=== PATIENT | male | born 1945 | race Caucasian/White ===

== ENCOUNTER 2022-05-02 09:05 | Outpatient (RCR) | payer MEDICARE, BC, SELFPAY ==
[2022-05-02 09:56] LABS: Basophils Absolute Auto 0.03 K/uL (0.00-0.30); Basophils Percent Auto 0.4 % (0.0-3.0); Eosinophils Absolute Auto 0.12 K/uL (0.00-0.50); Eosinophils Percent Auto 1.6 % (0.0-7.0); Hemoglobin* 12.1 gm/dL (13.5-17.5); Lymphocytes Absolute Auto 1.59 K/uL (0.90-2.90); Lymphocytes Percent Auto 21.7 % (20-44); Mean Corpuscular HGB Conc 34 gm/dL (32-36); Mean Corpuscular Hemoglobin 34 pg (26-34); Mean Corpuscular Volume 101 fL (80-100); Monocytes Percent Auto 10.1 % (0.0-11.0); Neutrophils Absolute Auto 4.85 K/uL (1.7-7.0); Neutrophils Percent Auto 66.2 % (42.0-72.0); Platelet Count* 205 K/uL (140-440); Red Blood Count 3.57 m/uL (4.30-5.90); White Blood Count* 7.33 K/uL (4.50-11.00)
[2022-05-02 09:57] LABS: Slide Review Reflex No
[2022-05-02 14:34] LABS: Albumin* 3.9 g/dL (3.3-5.0); Chloride* 102 mmol/L (96-114); Sodium* 135 mmol/L (135-149)
[2022-05-02 14:35] LABS: Potassium* 4.1 mmol/L (3.6-5.1)
[2022-05-02 14:38] LABS: Alanine Aminotransferase* 18 U/L (4-50); Alkaline Phosphatase* 75 U/L (40-150); Aspartate Amino Transferase* 34 U/L (12-35); Bilirubin Total* 0.4 mg/dL (0.1-1.5); Blood Urea Nitrogen* 20 mg/dL (7-30); Calcium* 8.8 mg/dL (8.4-10.6); Carbon Dioxide* 29 mmol/L (20-32); Creatinine* 0.6 mg/dL (0.5-1.5); Estimated Glomerular Filt Rate 100 ml/min; Glucose* 85 mg/dL (60-115); Total Protein* 6.4 g/dL (6.0-8.3)
[2022-05-02 15:49] LABS: Vitamin B12* > 1000 pg/mL (243-894)
[2022-05-03 10:46] LABS: Alpha Fetoprotein Tumor Marker 2 ng/mL (0-9)
[2022-05-04 12:13] LABS: Albumin 3.69 g/dL (3.75-5.01); Alpha 1 Globulin 0.31 g/dL (0.19-0.46); Alpha 2 Globulin 0.83 g/dL (0.48-1.05); Immunofixation IFE Done; Immunoglobulin A 158 mg/dL (68-408); Immunoglobulin G 947 mg/dL (768-1632); Immunoglobulin M 53 mg/dL (35-263); Kappa/Lambda Light Chain Ratio 1.78 (0.26-1.65); Lambda Qnt Free Light Chains 10.86 mg/L (5.71-26.30); Total Protein, Serum 6.4 g/dL (6.3-8.2)
== END 2022-05-15 23:59 | disposition home or self-care (01) ==
LOC: CCIC 09:05
PROVIDERS: PCP Family Medicine; Visit Provider Internal Medicine Hematology & Oncology
DX: E83.110 Hereditary hemochromatosis (principal); D51.9 Vitamin B12 deficiency anemia, unspecified; D47.2 Monoclonal gammopathy
CPT/HCPCS: 36415; 80053; 82105; 82607; 82728; 82784; 83520; 84155; 84165; 84443; 85025; 86334

== ENCOUNTER 2022-05-31 07:38 | Outpatient (RCR) | payer MEDICARE, BC, SELFPAY | END 2022-11-13 23:59 | disposition home or self-care (01) | LOC: CCIC 07:38 | PROVIDERS: PCP Family Medicine; Visit Provider Internal Medicine Hematology & Oncology | DX: C96.9 Malignant neoplasm of lymphoid, hematopoietic and related tissue, unspecified (principal); D47.2 Monoclonal gammopathy; E53.8 Deficiency of other specified B group vitamins; D64.9 Anemia, unspecified | CPT/HCPCS: 99212; 99213; 99214 ==